=== PATIENT | male | born 1955 | race Caucasian/White ===

== ENCOUNTER 2016-11-22 12:54 | Inpatient (IN) | payer OTHER ==
[~2016-11-22] VITALS: Ht 182.8 cm; Wt 122.5 kg
[~2016-11-22 12:54] MED LIST: AUGMENTIN 875 M1 TAB PO; DUONEB 3 MG/3 ML3 M1 NEB; HYDROCODONE BIT1 T11 PO; KEFLEX500 MG PO; NKHM; TRAMADOL HCL50 MG PO; VICODIN 500 MG-1 TAB PO; VICODIN ES 7501 TAB PO; Zestril,Prinivi40 MG PO
[2016-11-22 13:02] VITALS: BP 147/76
[2016-11-22 13:20] VITALS: BP 136/79
[2016-11-22 13:42] LABS: BASO % 0.3 % (0.0-1.0); EOS # 0.1 10*3/uL (0.0-0.4); EOS % 0.9 % (1.0-4.0); HEMATOCRIT 42.4 % (42.0-52.0); HEMOGLOBIN 14.5 g/dl (14.0-18.0); LYMPH # 2.4 10*3/uL (1.3-4.4); LYMPH % 27.6 % (27.0-41.0); MEAN CELL VOLUME 85.5 fl (80.0-94.0); MEAN CORPUSCULAR HGB 29.2 pg (27.0-31.0); MEAN CORPUSCULAR HGB CONC 34.2 g/dl (33.0-37.0); MONO # 0.8 10*3/uL (0.1-1.0); MONO % 8.6 % (3.0-9.0); NEUT # 5.4 10*3/uL (2.3-7.9); NEUT % 62.1 % (47.0-73.0); PLATELET COUNT AUTOMATED 269 10*3/uL (130-400); RED BLOOD COUNT 4.96 10*6/uL (4.50-5.90); RED CELL DISTRI WIDTH 12.5 % (0-14.5); WHITE BLOOD COUNT 8.7 10*3/uL (4.8-10.8)
[2016-11-22 13:59] LABS: ALBUMIN 3.7 gm/dl (3.1-4.5); ALKALINE PHOSPHATASE 69 U/L (45-117); BILIRUBIN, TOTAL 0.6 mg/dl (0.2-1.0); BUN 13 mg/dl (7-24); CARBON DIOXIDE 27 mmol/L (21-32); CHLORIDE 104 mmol/L (98-107); EST GLOM FILT AFRICAN AMERICAN > 60 ml/min; GLUCOSE 96 mg/dL (65-99); MAGNESIUM 1.8 mg/dL (1.5-2.1); POTASSIUM 3.7 mmol/L (3.5-5.1); SGOT/AST 24 IU/L (3-35); SGPT/ALT 53 U/L (12-78); SODIUM 140 mmol/L (136-145); TOTAL PROTEIN 7.6 gm/dL (6.4-8.2)
[2016-11-22 14:00] LABS: TROPONIN I < 0.015 ng/ml (<0.045)
[2016-11-22 14:10] VITALS: BP 111/59
[2016-11-22 14:26] VITALS: BP 106/61
[2016-11-22 16:00] VITALS: BP 128/78
[2016-11-22 20:00] VITALS: BP 137/75
[2016-11-23] VITALS: BP 118/79
[2016-11-23 06:22] LABS: BASO % 0.5 % (0.0-1.0); EOS # 0.2 10*3/uL (0.0-0.4); EOS % 2.7 % (1.0-4.0); HEMATOCRIT 42.3 % (42.0-52.0); HEMOGLOBIN 14.4 g/dl (14.0-18.0); LYMPH # 2.6 10*3/uL (1.3-4.4); LYMPH % 35.1 % (27.0-41.0); MEAN CELL VOLUME 86.9 fl (80.0-94.0); MEAN CORPUSCULAR HGB 29.6 pg (27.0-31.0); MONO # 0.7 10*3/uL (0.1-1.0); MONO % 9.4 % (3.0-9.0); NEUT # 3.9 10*3/uL (2.3-7.9); NEUT % 51.9 % (47.0-73.0); PLATELET COUNT AUTOMATED 267 10*3/uL (130-400); RED BLOOD COUNT 4.87 10*6/uL (4.50-5.90); RED CELL DISTRI WIDTH 12.6 % (0-14.5); WHITE BLOOD COUNT 7.4 10*3/uL (4.8-10.8)
[2016-11-23 06:35] LABS: HEMOGLOBIN A1c 5.6 % (4.8-5.6)
[2016-11-23 06:53] LABS: ALBUMIN 3.4 gm/dl (3.1-4.5); BILIRUBIN, TOTAL 0.6 mg/dl (0.2-1.0); BUN 13 mg/dl (7-24); CARBON DIOXIDE 30 mmol/L (21-32); CHLORIDE 104 mmol/L (98-107); CHOLESTEROL 114 mg/dL (<200); EST GLOM FILT AFRICAN AMERICAN > 60 ml/min; GLUCOSE 105 mg/dL (65-99); MAGNESIUM 2.1 mg/dL (1.5-2.1); PHOSPHOROUS 3.8 mg/dL (2.5-4.9); POTASSIUM 4.3 mmol/L (3.5-5.1); SGOT/AST 29 IU/L (3-35); SGPT/ALT 53 U/L (12-78); SODIUM 140 mmol/L (136-145); TOTAL PROTEIN 7.3 gm/dL (6.4-8.2); TRIGLYCERIDES 55 mg/dl (<150); VLDL CHOLESTEROL 11 mg/dL (6-40)
[2016-11-23 06:55] LABS: ALKALINE PHOSPHATASE 67 U/L (45-117); HDL CHOLESTEROL 52 mg/dl (40-60); LDL CHOLESTEROL 51 mg/dL (9-159)
[2016-11-23 07:50] LABS: VITAMIN D, 25-HYDROXY 12.1 ng/mL (30-100)
[2016-11-23 07:51] LABS: FOLIC ACID 12.17 ng/mL (>5.38)
[2016-11-23 08:00] VITALS: BP 132/83
[2016-11-23] MEDS ORDERED: LASIX20 MG PO (11:07)
[2016-11-23] MEDS ORDERED: KLOR-CON M1010 ME1 PO (11:07)
[2016-11-23] MEDS ORDERED: VITAMIN D-32000 UNI1 PO (11:09)
[2016-11-23 12:00] VITALS: BP 145/96
== END 2016-11-23 13:22 | disposition home or self-care (01) | DRG 292 ==
LOC: ED 12:54 → EDHOLD 14:45 → 5E 14:45
PROVIDERS: Hospitalist; Nurse Practitioner Family
DX: I50.31 Acute diastolic (congestive) heart failure (principal); E44.0 Moderate protein-calorie malnutrition; E66.01 Morbid (severe) obesity due to excess calories; L03.116 Cellulitis of left lower limb; I87.2 Venous insufficiency (chronic) (peripheral); I87.8 Other specified disorders of veins; B19.20 Unspecified viral hepatitis C without hepatic coma; F19.10 Other psychoactive substance abuse, uncomplicated; J45.909 Unspecified asthma, uncomplicated; F12.10 Cannabis abuse, uncomplicated; Z96.652 Presence of left artificial knee joint; Z87.891 Personal history of nicotine dependence; Z82.49 Family history of ischemic heart disease and other diseases of the circulatory system; Z80.9 Family history of malignant neoplasm, unspecified; Z79.899 Other long term (current) drug therapy; Z68.36 Body mass index [BMI] 36.0-36.9, adult

== ENCOUNTER → 2017-01-19 | Outpatient (CLI) | payer OTHER ==
[~2017-01-19] MED LIST changes: +KLOR-CON M1010 ME1 PO; +LASIX20 MG PO; +VITAMIN D-32000 UNI1 PO
[2017-01-19 10:48] LABS: BASO % 0.3 % (0.0-1.0); EOS # 0.2 10*3/uL (0.0-0.4); HEMATOCRIT 46.4 % (42.0-52.0); HEMOGLOBIN 15.8 g/dl (14.0-18.0); LYMPH # 2.8 10*3/uL (1.3-4.4); LYMPH % 27.4 % (27.0-41.0); MEAN CELL VOLUME 87.9 fl (80.0-94.0); MEAN CORPUSCULAR HGB 29.9 pg (27.0-31.0); MEAN CORPUSCULAR HGB CONC 34.1 g/dl (33.0-37.0); MEAN PLATELET VOLUME 10.2 fl (9.6-12.3); MONO # 0.7 10*3/uL (0.1-1.0); MONO % 6.9 % (3.0-9.0); NEUT # 6.4 10*3/uL (2.3-7.9); PLATELET COUNT AUTOMATED 324 10*3/uL (130-400); RED BLOOD COUNT 5.28 10*6/uL (4.50-5.90); RED CELL DISTRI WIDTH 12.6 % (0-14.5); WHITE BLOOD COUNT 10.2 10*3/uL (4.8-10.8)
[2017-01-19 11:15] LABS: ALKALINE PHOSPHATASE 86 U/L (45-117); BILIRUBIN, TOTAL 0.6 mg/dl (0.2-1.0); BUN 14 mg/dl (7-24); CARBON DIOXIDE 30 mmol/L (21-32); CHLORIDE 102 mmol/L (98-107); CHOLESTEROL 102 mg/dL (<200); EST GLOM FILT AFRICAN AMERICAN > 60 ml/min; GLUCOSE 114 mg/dL (65-99); HDL CHOLESTEROL 52 mg/dl (40-60); LDL CHOLESTEROL 41 mg/dL (9-159); POTASSIUM 4.4 mmol/L (3.5-5.1); SGOT/AST 33 IU/L (3-35); SGPT/ALT 66 U/L (12-78); SODIUM 140 mmol/L (136-145); TOTAL PROTEIN 8.3 gm/dL (6.4-8.2); TRIGLYCERIDES 46 mg/dl (<150); VLDL CHOLESTEROL 9 mg/dL (6-40)
[2017-01-19 11:21] LABS: THYROID STIM HORMONE (HS) 0.693 uIU/ml (0.358-4.75)
== END | disposition home or self-care (01) ==
LOC: LAB 10:17
PROVIDERS: Internal Medicine
DX: Z12.5 Encounter for screening for malignant neoplasm of prostate (principal); I11.0 Hypertensive heart disease with heart failure; I50.32 Chronic diastolic (congestive) heart failure; E55.9 Vitamin D deficiency, unspecified; E66.09 Other obesity due to excess calories; R35.1 Nocturia

== ENCOUNTER → 2017-03-05 | Outpatient (CLI) | payer OTHER ==
[2017-03-05 11:10] LABS: BUN 16 mg/dl (7-24); CHLORIDE 103 mmol/L (98-107); POTASSIUM 4.1 mmol/L (3.5-5.1); SODIUM 135 mmol/L (136-145)
== END | disposition home or self-care (01) ==
LOC: LAB 10:13
PROVIDERS: Internal Medicine
DX: I50.32 Chronic diastolic (congestive) heart failure (principal)

== ENCOUNTER 2018-01-24 08:17 | Emergency (ER) | payer OTHER ==
[~2018-01-24] VITALS: Ht 182.8 cm; Wt 124.7 kg
[2018-01-24 09:01] LABS: BASO % 0.4 % (0.0-1.0); EOS # 0.2 10*3/uL (0.0-0.4); EOS % 2.1 % (1.0-4.0); HEMATOCRIT 40.9 % (42.0-52.0); HEMOGLOBIN 13.6 g/dl (14.0-18.0); LYMPH # 1.6 10*3/uL (1.3-4.4); LYMPH % 18.6 % (27.0-41.0); MEAN CELL VOLUME 87.2 fl (80.0-94.0); MEAN CORPUSCULAR HGB CONC 33.3 g/dl (33.0-37.0); MEAN PLATELET VOLUME 9.3 fl (9.6-12.3); MONO # 0.5 10*3/uL (0.1-1.0); NEUT # 6.1 10*3/uL (2.3-7.9); NEUT % 72.5 % (47.0-73.0); PLATELET COUNT AUTOMATED 249 10*3/uL (130-400); RED BLOOD COUNT 4.69 10*6/uL (4.50-5.90); WHITE BLOOD COUNT 8.5 10*3/uL (4.8-10.8)
[2018-01-24 09:17] LABS: ALBUMIN 3.4 gm/dl (3.1-4.5); ALKALINE PHOSPHATASE 72 U/L (45-117); BUN 12 mg/dl (7-24); CHLORIDE 105 mmol/L (98-107); CREATININE 0.81 mg/dL (0.70-1.30); POTASSIUM 4.3 mmol/L (3.5-5.1); SGOT/AST 22 IU/L (3-35); SGPT/ALT 44 U/L (12-78); SODIUM 140 mmol/L (136-145); TOTAL PROTEIN 7.6 gm/dL (6.4-8.2)
[2018-01-24] MEDS ORDERED: LASIX20 MG PO (10:12)
== END 2018-01-24 10:28 | disposition home or self-care (01) ==
LOC: ED 08:17
PROVIDERS: Emergency Medicine
DX: R60.0 Localized edema (principal); F19.10 Other psychoactive substance abuse, uncomplicated; J45.909 Unspecified asthma, uncomplicated; I50.9 Heart failure, unspecified; E66.01 Morbid (severe) obesity due to excess calories; Z87.891 Personal history of nicotine dependence; Z96.652 Presence of left artificial knee joint; Z79.899 Other long term (current) drug therapy

== ENCOUNTER 2019-11-15 21:16 | Inpatient (IN) | payer OTHER ==
[~2019-11-15] VITALS: Ht 182.8 cm; Wt 132.5 kg
[2019-11-15 21:23] VITALS: BP 103/49
--- NOTE | 2019-11-15 21:44 | NUR ---
EKG COMPLETED AND GIVEN TO DR. LINDSAY.
[2019-11-15 22:07] LABS: BASO % 0.2 % (0.0-1.0); EOS # 0.1 10*3/uL (0.0-0.4); EOS % 1.3 % (1.0-4.0); HEMATOCRIT 42.6 % (42.0-52.0); LYMPH # 1.8 10*3/uL (1.3-4.4); LYMPH % 17.3 % (27.0-41.0); MEAN CELL VOLUME 85.2 fl (80.0-94.0); MEAN CORPUSCULAR HGB 29.8 pg (27.0-31.0); MEAN PLATELET VOLUME 9.6 fl (9.6-12.3); MONO # 0.9 10*3/uL (0.1-1.0); MONO % 8.3 % (3.0-9.0); NEUT # 7.4 10*3/uL (2.3-7.9); NEUT % 72.5 % (47.0-73.0); PLATELET COUNT AUTOMATED 333 10*3/uL (130-400); RED CELL DISTRI WIDTH 12.1 % (0-14.5); WHITE BLOOD COUNT 10.2 10*3/uL (4.8-10.8)
[2019-11-15 22:24] LABS: ALKALINE PHOSPHATASE 53 U/L (45-117); BUN 14 mg/dl (7-24); CHLORIDE 104 mmol/L (98-107); CREATININE 0.71 mg/dL (0.70-1.30); POTASSIUM 3.1 mmol/L (3.5-5.1); SGOT/AST 49 IU/L (3-35); SGPT/ALT 58 U/L (12-78); SODIUM 136 mmol/L (136-145); TOTAL PROTEIN 7.3 gm/dL (6.4-8.2); TROPONIN I < 0.015 ng/ml (<0.045)
--- NOTE | 2019-11-15 22:25 | NUR ---
PT GIVEN URINAL FOR SAMPLE.
[2019-11-15 23:48] LABS: BILIRUBIN NEGATIVE (NEGATIVE); BLOOD NEGATIVE (NEGATIVE); CLARITY CLEAR (CLEAR); COLOR YELLOW (YELLOW); GLUCOSE NEGATIVE (NEGATIVE); KETONE NEGATIVE (NEGATIVE)
[2019-11-15 23:49] LABS: BACTERIA TRACE; EPITHELIAL CELLS 0-2; LEUKO ESTERASE TRACE (NEGATIVE); MUCOUS 1+; NITRITE NEGATIVE (NEGATIVE); RBC 0-2 rbc/hpf (0-2); WBC 0-2 wbc/hpf (0-5)
[2019-11-16] VITALS: BP 126/78
[2019-11-16 01:23] VITALS: BP 114/59
--- NOTE | 2019-11-16 01:24 | NUR ---
PT SLEEPING QUIETLY ON STRETCHER IN NAD. RESP EVEN AND UNLABORED. WILL CONTINUE TO MONITOR.
--- NOTE | 2019-11-16 01:45 | NUR ---
SBAR FAXED TO [facility]
[2019-11-16 02:00] VITALS: BP 133/73
--- NOTE | 2019-11-16 02:19 | NUR ---
PT TRANSPORTED TO IN STABLE CONDITION. REPORT TO DAGMAR MICHELLE.
--- NOTE | 2019-11-16 02:30 | NUR ---
PATIENT DENIED TAKING HOME MEDICATIONS
--- NOTE | 2019-11-16 03:30 | NUR ---
BRADY TAMEZ III [id number] Please refer to the physician's history and physical for past medical history, comorbid conditions, and allergies. Diagnosis: PHYSICAL DECONDITIONING,WEAKNESS Ever Score: , WOUND DESCRIPTIONS: Wound Number: 1 Location of the wound: left axilla Type of wound: fungal Thickness: Partial Size: 13.0cm x 15.0cm x <0.1cm Tunneling: none Undermining: none Sinus Tract: none Presence of Exudate: none Amount: None Color: Red Odor: Musty Periwound Skin Appearance: Normal Wound edges: approximated Pain (associated with wound): none at time of assessment How does patient state this happened? pt stated he was unaware that he even had anything until they pointed it out downstairs Wound Number: 2 Location of the wound: right axilla Type of wound: fungal Thickness: Partial Size: 3.3cm x 10.5cm x <0.1cm Tunneling: none Undermining: none Sinus Tract: none Presence of Exudate: none Amount: None Color: Red Odor: Musty Periwound Skin Appearance: Normal Wound edges: approximated Pain (associated with wound): none at time of assessment How does patient state this happened? pt stated he was unaware that he even had anything until they pointed it out downstairs Wound Number: 3 Location of the wound: left groin Type of wound: fungal Thickness: Partial Size: 19.5cm x 5.0cm x <0.1cm Tunneling: none Undermining: none Sinus Tract: none Presence of Exudate: none Amount: None Color: Red Odor: Musty Periwound Skin Appearance: Normal Wound edges: approximated Pain (associated with wound): none at time of assessment How does patient state this happened? pt stated he was unaware that he even had anything until they pointed it out downstairs Wound Number: 4 Location of the wound: right groin Type of wound: fungal Thickness: Partial Size: 30.0cm x 4.0cm x <0.1cm Tunneling: none Undermining: none Sinus Tract: none Presence of Exudate: none Amount: None Color: Red Odor: Musty Periwound Skin Appearance: Normal Wound edges: approximated Pain (associated with wound): none at time of assessment How does patient state this happened? pt stated he was unaware that he even had anything until they pointed it out downstairs Wound Number: 5 Location of the wound: left 4th toe Type of wound: abrasion Thickness: Partial Size: 0.3cm x 0.4cm x <0.1cm Tunneling: none Undermining: none Sinus Tract: none Presence of Exudate: none Amount: None Color: Red, brown Odor: none Periwound Skin Appearance: Normal Wound edges: approximated Pain (associated with wound): none at time of assessment How does patient state this happened? pt stated he bumped the area Bilateral heels are red and blanchable. No open areas noted at time of assessment. No drainage at time of assessment. Patient buttocks is pink and blanchable at time of assessment. No open areas noted at time of assessment. Surface the patient is resting on: Isoflex SKIN PREVENTION RECOMMENDATION: 1. Pressure redistribution support surface as appropriate 2. Elevate heels 3. Remove boots/TEDS every shift and reapply 4. Head of bed 30 degrees as tolerated 5. Assess nutrition and hydration 6. Manage moisture 7. Avoid the use of containment devices while in bed 8. Use absorptive products on surfaces limit layers of linens on bed 9. Turn and reposition every 1-2 hours in bed and every 1 hour in chair as tolerated 10. Weight shifts every 15 minutes while up in chair 11. Offloading with pillows or device to keep heels elevated off bed 12. Monitor skin at least every shift 13. Inspect under medical devices twice a day WOUND TREATMENT RECOMMENDATIONS: Clease left axilla, right axilla, right groin and left groin with soap and water pat area dry then apply nystatin powder every 8 hours Partial thickness guidelines: Cleanse left 4th toe with nss and apply sureprep around the wound hydrogel to wound bed and cover with bandaid every 2 days and prn for soiling Heel raiser pro boots to bilateral feet while in bed Cleanse buttocks with soap and water pat area dry then apply hydraguard every shift and prn for prevention.
--- NOTE | 2019-11-16 03:54 | NUR ---
Time: 199 A 64 year old MALE admitted to [facility] under services of KEIKO VENCES MD. Pt. arrived via stretcher from ER. Chief complaint: CAME IN WITH C/O WEAKNESS. STATED HE WAS UNABLE TO GET OFF COUCH X 2 WEEKS. ABIOLA GRAMAJO
--- NOTE | 2019-11-16 07:52 | NUR ---
PHYSICAL THERAPY Screen and PT eval received will follow thank you. Nohemy Royal PT
[2019-11-16 08:00] VITALS: BP 122/81
--- NOTE | 2019-11-16 08:04 | NUR ---
Occupational therapy order and nursing screen received. Will follow up with patient for completion of an OT evaluation. Thank you. Char Arrington, OTR/L
--- NOTE | 2019-11-16 08:28 | NUR ---
PT SITTING UP ON SIDE OF BED, EATING BREAKFAST. PT DENIES DISTRESS. RESPIRATIONS UNLABORED. PT GIVEN CALL LIGHT AND REMINDED TO CALL FOR HELP IF HE DOES NEED ANYTHING WHILE EATING. WILL CONTINUE TO MONITOR PT. CALL LIGHT IN REACH.
--- NOTE | 2019-11-16 09:30 | NUR ---
Business Systems Advisor in to talk to patient. Patient states lives at home alone with his family checking in on her. There are 0 steps in the home. Physician: no family physician [facility]acy: [facility] Home health services: none Patient's level of ADLs: MINIMAL ASSIST Patient has working utilities: yes DME: none Follow-up physician's appointment after d/c: he prefers to make his own follow up appt after discharge Does patient want to access PORTAL?: no Discharge plan discussed with patient. He lives at home alone with his family checking in on him. He states he is independent in his ADLs and ambulation. Discussed short term rehab and he is agreeable. When provided with a list of facilities he wanted to stay close to home and chose [facility]. clothing worker notified. JEAN KOROMA
--- NOTE | 2019-11-16 09:51 | NUR ---
SENIOR EXECUTIVE ASSISTANT CONTACTED APS WITH CONCERNS FOR HOW THE PATIENT WAS FOUND PER ER DOCUMENTATION.
--- NOTE | 2019-11-16 11:57 | NUR ---
Occupational Therapy evaluation completed on five with full evaluation to follow. Recommend occupational therapy per plan of care and SNF upon discharge. Thank you for this referral. Char Arrington OTR/L
--- NOTE | 2019-11-16 11:57 | NUR ---
PHYSICAL THERAPY Physical Therapy evaluation completed on [facility] with full evaluation to follow. Low complexity PT evaluation per chart review and evaluation, [id number]. Recommend physical therapy per plan of care and SNF upon discharge. Thank you for this referral. Monie Campbell,PT,DPT
[2019-11-16 12:00] VITALS: BP 143/77
--- NOTE | 2019-11-16 12:11 | NUR ---
DOCUMENTATION WRITER FAXED NEW REFERRAL TO [facility]. PRECERT WILL BE REQUIRED.
--- NOTE | 2019-11-16 16:39 | NUR ---
PT GIVEN TYLENOL FOR C/O RIGHT KNEE PAIN. WILL MONITOR FOR EFFECTIVENESS. CALL LIGHT IN REACH.
--- NOTE | 2019-11-16 17:39 | NUR ---
TYLENOL EFFECTIVE PER PT.
[2019-11-16 20:00] VITALS: BP 128/70
[2019-11-17] VITALS: BP 119/73
--- NOTE | 2019-11-17 04:01 | NUR ---
TYLENOL GIVEN PER PRN ORDER FOR C/O KMEE PAIN. SEE EMAR. REINFORCED USE OF CALL LIGHT.
--- NOTE | 2019-11-17 04:16 | NUR ---
Upon discharge recommend patient to follow up for wound care in outpatient setting continue current wound care orders at discharging facility.
--- NOTE | 2019-11-17 07:30 | NUR ---
TOOK OVER CARE OF PT AT THIS TIME. PT RESTING IN BED. RESPIRATIONS EASY AND UNLABORED ON ROOM AIR. NO S/S OF DISTRESS NOTED AT THIS TIME. SAFETY MEASURES IN PLACE. CALL LIGHT IN REACH.
[2019-11-17 08:00] VITALS: BP 135/84
--- NOTE | 2019-11-17 10:28 | NUR ---
PHYSICAL THERAPY Physical therapy treatment session complete. Total treatment time: 18 minutes. Patient sitting EOB at beginning of PT session and agreeable to skilled PT services. Patient A&O x3. OT present throughout treatment session. Patient returned to supine position in bed and then was assisted to sitting on opposite side of bed, CGA x1. Patient requiring assistance for trunk, due to trunk weakness 3+/5 noted. Patient sitting EOB, and transferred to standing at FWW. Patient requiring ModA for sit to stand initially, and then Raf after 2 attempts, totaling 5 sit to stands. Patient gait trained forward/back 6'x1. Raf with walker, verbal/tactile cueing for safety. Patient returned to seated position on EOB. Patient gait trained another 6'x1 with FWW and Raf, and returned to seated position in recliner. Patient lacking safety awareness, impulsive, and unsteady throughout gait this session. SpO2 >96% throughuot entire session. Patient remained in recliner at end of PT session. Recommend continued SNF needs at discharge to return to PLOF. Thank you. Monie Campbell,PT,DPT.
--- NOTE | 2019-11-17 10:30 | NUR ---
OT NOTE Patient was seen this date for occupational therapy treatment to maximize safety and independence with ADLs and transfers. Nursing gave approval to see patient and patient was agreeable to OT treatment. PT was present for observation. Upon arrival, patient was seated EOB stating he spilled his urinal on the ground, OTR and PT assisted with cleaning up. Patient transferred to supine and to the opposite side of the bed with CGAx1. Patient changed front gowns with Min A seated EOB. Patient unable to complete tailor sit for sock donning and educated on scooting one hip back and lifting LE to EOB. Patient required Mod A to don socks over toes but had good carryover of edu and completed the task. Patient completed multiple sit/stands from EOB with Min to Mod A with good carryover of safe hand placement for transfers. Patient performed mobility within the room with Min Ax2, very impulsive and unsteady in stance. Patient completed a grooming task in stance with Min Ax2 for balance. Patient seated in the recliner needing to utilize the urinal with set-up assist however required Mod cues for toileting hygiene. Patient maintained SpO2 on >96% throughout evaluation. Patient seated in recliner, all needs within reach, and alarm on for safety. Nursing notified of patient location, functional status, and cleanliness of room at end of eval. Patient to continue with POC as able, recommend SNF at discharge. Char Arrington, OTR/L
--- NOTE | 2019-11-17 11:21 | NUR ---
FILES SUPERVISOR FAXED UPDATES TO [facility]. PATIENT WILL NEED A NEGATIVE COVID BEFORE ACCEPTANCE/DENIAL TO [facility].
--- NOTE | 2019-11-17 12:17 | NUR ---
pt sitting up in chair beside bed at this time. pt alert oriented and pleasant mood. no s/s of distress. respirations easy and unlabored. pt denies pain at this time. will continue to monitor. safety measures in place. call light in reach.
--- NOTE | 2019-11-17 12:51 | NUR ---
Nutritional Support Services Note: Appetite is good for meals. He is eating 100% of all meals served. Regular diet as ordered. No other nutrition intervention needed at this time. Will follow if needed. Lisa Langford Rdn Ld
--- NOTE | 2019-11-17 13:16 | NUR ---
PRECERT HAS BEEN STARTED. PATIENT WILL NEED NEGATIVE COVID BEFORE ADMISSION TO [facility].
--- NOTE | 2019-11-17 13:53 | NUR ---
PT ASSISTED TO BATHROOM AND BACK TO BED BY THIS NURSE AND A PATIENT ATTEDANT. PT USED WALKER TO WALK. PT DENIES SHORTNESS OF BREATH. RESPIRATIONS ARE UNLABORED. NYSTATIN POWDER APPLIED TO EXCORIATED AREAS PER ORDERS. PT LYING IN BED. HOB ELEVATED. SAFETY MEASURES IN PLACE. CALL LIGHT IN REACH.
--- NOTE | 2019-11-17 15:10 | NUR ---
PRECERT HAS BEEN STARTED. INFORMATION TECHNOLOGY ANALYST COMPLETED HENS.
[2019-11-17 16:00] VITALS: BP 144/83
--- NOTE | 2019-11-17 17:16 | NUR ---
PT SITTING UP IN BED. NO COMPLAINTS VOICED. RESPIRATIONS UNLABORED. CALL LIGHT IN REACH.
--- NOTE | 2019-11-17 18:37 | NUR ---
COVID 19 RAPID TEST IS NEGATIVE.
[2019-11-17 20:00] VITALS: BP 152/77
--- NOTE | 2019-11-17 20:20 | NUR ---
24 HR chart check completed.
[2019-11-18] VITALS: BP 138/83
[2019-11-18 06:44] LABS: BUN 8 mg/dl (7-24); CHLORIDE 108 mmol/L (98-107); CREATININE 0.62 mg/dL (0.70-1.30); POTASSIUM 3.6 mmol/L (3.5-5.1); SODIUM 138 mmol/L (136-145)
--- NOTE | 2019-11-18 07:30 | NUR ---
PT RESTING IN BED. VOICES NO CONCERNS AT THIS TIME. RESPS EASY AND NON LABORED. NO S/S OF DISTRESS NOTED. VSS. WHITE BOARD UPDATED. PLAN OF CARE DISCUSSED.CALL LIGHT WITHIN REACH. BED ALARM ON
[2019-11-18 08:00] VITALS: BP 134/86
--- NOTE | 2019-11-18 10:56 | NUR ---
Shift chart check completed.
--- NOTE | 2019-11-18 14:17 | NUR ---
PT SITTING UP WATCHING TV. VOICES NO CONCERNS. RESPS EASY AND NON LABORED. NO S/S OF DISTRESS. BED ALARM ON. CALL LIGHT WITHIN REACH.
[2019-11-18 16:00] VITALS: BP 138/80; BP 160/85
--- NOTE | 2019-11-18 17:54 | NUR ---
PT SITTING UP EATING DINNER. VOICES NO CONCERNS AT THIS TIME. RESPS EASY AND NON LABORED. NO S/S OF DISTRESS NOTED. CALL LIGHT WITHIN REACH. BODY ALARM ON.
[2019-11-18 20:00] VITALS: BP 137/77
--- NOTE | 2019-11-18 20:00 | NUR ---
SITTING UP IN BED, NO DISTRESS NOTED. RESPIRATIONS EASY. LUNGS DIMINISHED, CLEAR. PULSE OX 98% RA. +1 BLE EDEMA, ENCOURAGED TO ELEVATE LEGS. CALL LIGHT WITHIN REACH. NO VOICED COMPLAINTS
--- NOTE | 2019-11-18 21:40 | NUR ---
REQUESTED AND RECEIVED AMBIEN PER PRN ORDER TO ASSIST WITH SLEEP. WILL MONITOR
--- NOTE | 2019-11-18 22:30 | NUR ---
AMBIEN NOT YET EFFECTIVE. REMAINS AWAKE
[2019-11-19] VITALS: BP 140/82; BP 143/91
--- NOTE | 2019-11-19 | NUR ---
OPALIEN EFFECTIVE. SLEEPING. RESPIRATIONS EASY. VSS. CALL LIGHT WITHIN REACH.
--- NOTE | 2019-11-19 01:55 | NUR ---
24 HR chart check completed.
--- NOTE | 2019-11-19 06:00 | NUR ---
RESTED THROUGHOUT NIGHT WITH NO DISTRESS NOTED. RESPIRATIONS EASY. CALL LIGHT WITHIN REACH. NO VOICED COMPLAINTS THIS SHIFT
[2019-11-19 08:00] VITALS: BP 142/76
--- NOTE | 2019-11-19 08:25 | NUR ---
PT RESTING IN BED/ NO DISTRESS NOTED. WILL MONITOR
[2019-11-19 12:00] VITALS: BP 138/75
--- NOTE | 2019-11-19 13:30 | NUR ---
PT REQUESTED AND GIVEN TYLENOL FOR C/O HEADACHE WILL MONITOR
--- NOTE | 2019-11-19 14:20 | NUR ---
TYLENOL HELPED PER PT WILL CONT TO MONITOR
[2019-11-19 16:00] VITALS: BP 137/90
[2019-11-19 20:00] VITALS: BP 122/58; BP 154/90
--- NOTE | 2019-11-19 20:00 | NUR ---
resting in bed watching tv with no distress noted. respirations easy. lungs diminished, clear. pulse ox 96% ra. +1 ble edema. call light within reach. no voiced complaints
--- NOTE | 2019-11-19 20:00 | NUR ---
24 HR chart check completed.
--- NOTE | 2019-11-19 20:59 | NUR ---
requested and received tylenol and ambien per prn order for complaints of generalized aches and pains and to assist with sleep. call light within reach. will monitor for effectiveness
--- NOTE | 2019-11-19 21:45 | NUR ---
meds appear effective. sleeping. respirations easy. call light within reach
[2019-11-20] VITALS: BP 140/88; BP 144/93
--- NOTE | 2019-11-20 | NUR ---
sleeping with no distress noted. respirations easy. vss. call light within reach.
--- NOTE | 2019-11-20 06:00 | NUR ---
SLEPT THROUGHOUT NIGHT WITH NO DISTRESS NOTED. RESPIRATIONS EASY. CALL LIGHT WITHIN REACH. NO VOICED COMPLAINTS THIS SHIFT
--- NOTE | 2019-11-20 07:43 | NUR ---
pt resting in bed. no distress noted. will monitor
[2019-11-20 08:00] VITALS: BP 132/86
--- NOTE | 2019-11-20 08:12 | NUR ---
PRECERT WAS STARTED ON 11/17/19. PILLOWCASE CLEANER FAXED UPDATES TO [facility]. WILL NEED UPDATED PT/OT NOTES.
[2019-11-20] MEDS ORDERED: Ipratropium Brom3 ML NEB (08:46)
[2019-11-20] MEDS ORDERED: NYSTOP60 GM T (08:46)
[2019-11-20] MEDS ORDERED: SERTRALINE HYDR25 MG PO (08:46)
--- NOTE | 2019-11-20 09:30 | NUR ---
PHYSICAL THERAPY Patient seen this am 1;1 for therapy visit and was resting supine in bed upon therapist arrival. Patient identified by name / and reports global mucsle soreness in all joints, 09/28. OT assistant director of admissions was also present for observation only this session as patient transfers supine to sit EOB with Min A. Patient needed a minute or so to fully collect himself prior to performing sit to stand transfer, CGA, use of wh walker standing support. Patient ambulated to bathroom, 15'x 1, wh walker, CGA, then additional 35'x 1, demonstrating very slow, cautious gait pattern. Patient also "slouched" posture at times, requiring v/c to stand tall upon return to EOB sit with increased fatigue. Patient remained EOB with call light, tray table and telephone. Will continue per POC as tolerated, total treatment time 16 minutes. Jarvis Garcia, ACCOUNTANT MANAGER
--- NOTE | 2019-11-20 09:35 | NUR ---
OT NOTE Pt was seen this A.M. 1:1 for 20 minute OT session. Upon arrival pt was supine in bed. Pt identified by name and and had complaints of being "sore" all over. Pt transferred supine to sit EOB with SBA. While sitting EOB pt donned pants with CGA for safety and was educated on compensatory technique for increased I and improved technique, pt had fair carry over. Sit to stand completed from bed level with CGA and use of w/w for UE support followed by functional mobility to the bathroom with CGA and use of w/w. Throughout pt required multiple verbal prompts for slowing down due to being impulsive and increasing risk of falls. Pt had multiple bouts of unsteady stance that required Kalee to correct. While in the bathroom pt presented with poor safety awareness, poor walker safety, poor safety with turning, and poor safety while stepping back. After education and verbal prompts were given pt continued to present with poor carry over. While transferring on to the standard commode pt required Kalee due to poor safety and being impulsive and then off the commode with Kalee with LOB backwards upon inital rise that required modA to correct. Pt then stood sink side while washing his hands with CGA, pt again presented with poor safety awareness and being impulsive resulting in two LOB that required Kalee to correct. Functional mobility was then completed back to the EOB for a seated rest break. Challenged pt's dynamic standing balance while weight shifting, crossing midline, and reaching over all planes and pt was able to maintain F- standing balance throughout. Pt was left sitting upright on the EOB with call light in hand, tray table in place, and phone in reach. Continue with rec D/C plan to SNF. MONICA Briscoe
--- NOTE | 2019-11-20 11:18 | NUR ---
ELECTRICAL MAINTENANCE MECHANIC FAXED PT/OT UPDATES TO [facility].
[2019-11-20 12:00] VITALS: BP 126/94
--- NOTE | 2019-11-20 12:28 | NUR ---
PT REQUESTED AND GIEVN TYLENOL FOR GEN PAIN PT RATES PAIN 6/10 WILL MONITOR
--- NOTE | 2019-11-20 13:20 | NUR ---
TYLENOL HELPED PER PT WILL MONITOR
--- NOTE | 2019-11-20 15:30 | NUR ---
PATIENT IS DISCHARGED CHECKING WITH [facility] IF THEY CAN TRANSPORT THE PATIENT AT 5PM. PATIENT WILL NOT QUALIFY FOR AN AMBULANCE. SCHOOL PSYCHOLOGIST NOTIFIED WC-RAZ.
--- NOTE | 2019-11-20 15:35 | NUR ---
BRAND DEVELOPMENT MANAGER NOTIFIED OF PATIENT DISCHARGE. BRAND DEVELOPMENT MANAGER SPOKE WITH [facility] THEY ARE ABLE TO TRANSPORT THE PATIENT THE PATIENT AT 5PM TODAY. BRAND DEVELOPMENT MANAGER NOTIFIED RN JENNIFFER. BRAND DEVELOPMENT MANAGER CALLED AND LEFT MESSAGE FOR PATIENTS SON.
--- NOTE | 2019-11-20 15:59 | NUR ---
PT REFUSED DC WOUND PHOTOS
--- NOTE | 2019-11-20 17:03 | NUR ---
REPORT CALLED TO [facility]
--- NOTE | 2019-11-20 17:15 | NUR ---
Discharge instructions reviewed with patient/family. Patient receptive and verbalizes understanding. Follow-up care arranged. Written instructions given to patient/family. RUTHIE ANDINO
--- NOTE | 2019-11-21 08:18 | NUR ---
OCCUPATIONAL THERAPY CO-SIGN I approve of the Occupational Therapy notes written above. JANELL CERVANTES, OTR/L
--- NOTE | 2019-11-21 08:19 | NUR ---
PHYSICAL THERAPY CO-SIGN I approve of the Physical Therapy notes written above. Nohemy Royal PT
== END 2019-11-20 17:15 | disposition other institution (70) | DRG 641 ==
LOC: ED 21:16 → 5E 11-16 01:39
PROVIDERS: Emergency Medicine; ADMIT Internal Medicine
DX: E87.6 Hypokalemia (principal); E44.0 Moderate protein-calorie malnutrition; F32.1 Major depressive disorder, single episode, moderate; R26.89 Other abnormalities of gait and mobility; R62.7 Adult failure to thrive; J45.20 Mild intermittent asthma, uncomplicated; Z96.652 Presence of left artificial knee joint; I50.9 Heart failure, unspecified; E66.01 Morbid (severe) obesity due to excess calories; F51.01 Primary insomnia; R53.1 Weakness; Z87.891 Personal history of nicotine dependence; Z83.3 Family history of diabetes mellitus; Z82.49 Family history of ischemic heart disease and other diseases of the circulatory system; Z80.7 Family history of other malignant neoplasms of lymphoid, hematopoietic and related tissues; Z68.39 Body mass index [BMI] 39.0-39.9, adult

== ENCOUNTER 2020-09-18 15:38 | Inpatient (IN) | payer OTHER ==
[~2020-09-18] VITALS: Ht 182.9 cm; Wt 108.1 kg
[2020-09-18 15:38] VITALS: BP 98/62
[~2020-09-18 15:38] MED LIST changes: +Ipratropium Brom3 ML NEB; +NYSTOP60 GM T; +SERTRALINE HYDR25 MG PO
[2020-09-18 17:15] VITALS: BP 87/36
[2020-09-18 17:52] VITALS: BP 113/72
[2020-09-18 17:53] LABS: HEMATOCRIT 50.8 % (42.0-52.0); MEAN CELL VOLUME 85.8 fl (80.0-94.0); MEAN CORPUSCULAR HGB 27.9 pg (27.0-31.0); MEAN CORPUSCULAR HGB CONC 32.5 g/dl (33.0-37.0); MEAN PLATELET VOLUME 10.3 fl (9.6-12.3); PLATELET COUNT AUTOMATED 398 10*3/uL (130-400); RED BLOOD COUNT 5.92 10*6/uL (4.50-5.90); RED CELL DISTRI WIDTH 13.2 % (0-14.5); WHITE BLOOD COUNT 27.5 10*3/uL (4.8-10.8)
[2020-09-18 18:00] LABS: BILIRUBIN 2+ (Negative); BLOOD 1+ (Negative); CLARITY Cloudy (Clear); COLOR Dark Yellow (Yellow); GLUCOSE Negative (Negative); KETONE Negative (Negative); LEUKO ESTERASE Trace (Negative); NITRITE Positive (Negative); SPECIFIC GRAVITY 1.025 (1.001-1.030)
[2020-09-18 18:01] LABS: ABG BASE EXCESS -3.1 mmol/L (-2.0-2.0); ARTERIAL BLOOD GAS PH 7.517 (7.35-7.45); ARTERIAL BLOOD GAS PO2 66.1 (80-90)
[2020-09-18 18:06] LABS: ACT PARTIAL THROMBO TIME 33.1 SECONDS (20.0-32.1); INTERNATIONAL NORM RATIO 1.5 (2.0-3.5)
[2020-09-18 18:08] LABS: BACTERIA 2+
[2020-09-18 18:11] LABS: ALBUMIN 2.1 gm/dl (3.1-4.5); ALKALINE PHOSPHATASE 83 U/L (45-117); BUN 45 mg/dl (7-24); CHLORIDE 108 mmol/L (98-107); CREATININE 1.22 mg/dL (0.70-1.30); POTASSIUM 4.2 mmol/L (3.5-5.1); SGOT/AST 79 IU/L (3-35); SGPT/ALT 48 U/L (12-78); SODIUM 139 mmol/L (136-145)
[2020-09-18 18:15] LABS: PLATELET SUFFICIENCY NORMAL (NORMAL); TOTAL CELLS COUNTED 100 #CELLS
[2020-09-18 18:17] LABS: TROPONIN I < 0.015 ng/ml (<0.045)
[2020-09-18 19:07] VITALS: BP 115/61
[2020-09-18 19:13] VITALS: BP 114/77
[2020-09-18 20:30] VITALS: BP 104/76
[2020-09-19] VITALS: BP 113/72
[2020-09-19 04:00] VITALS: BP 105/81
[2020-09-19 05:41] LABS: ALBUMIN 1.8 gm/dl (3.1-4.5); ALKALINE PHOSPHATASE 69 U/L (45-117); BUN 39 mg/dl (7-24); CHLORIDE 109 mmol/L (98-107); CREATININE 0.97 mg/dL (0.70-1.30); POTASSIUM 3.4 mmol/L (3.5-5.1); SGOT/AST 63 IU/L (3-35); SGPT/ALT 36 U/L (12-78); SODIUM 138 mmol/L (136-145); TOTAL PROTEIN 6.3 gm/dL (6.4-8.2)
[2020-09-19 06:13] LABS: HEMATOCRIT 43.1 % (42.0-52.0); MEAN CELL VOLUME 85.9 fl (80.0-94.0); MEAN CORPUSCULAR HGB 28.3 pg (27.0-31.0); MEAN CORPUSCULAR HGB CONC 32.9 g/dl (33.0-37.0); MEAN PLATELET VOLUME 10.2 fl (9.6-12.3); PLATELET COUNT AUTOMATED 374 10*3/uL (130-400); RED BLOOD COUNT 5.02 10*6/uL (4.50-5.90); RED CELL DISTRI WIDTH 13.3 % (0-14.5); WHITE BLOOD COUNT 21.8 10*3/uL (4.8-10.8)
[2020-09-19 07:48] LABS: BURR CELLS MODERATE; PLATELET SUFFICIENCY NORMAL (NORMAL); TOTAL CELLS COUNTED 100 #CELLS
[2020-09-19 08:00] VITALS: BP 106/68
[2020-09-19 12:00] VITALS: BP 110/68
[2020-09-19 16:00] VITALS: BP 111/62
[2020-09-19 20:00] VITALS: BP 117/70
[2020-09-20] VITALS: BP 106/67
[2020-09-20 04:00] VITALS: BP 106/44
[2020-09-20 05:51] LABS: HEMATOCRIT 45.1 % (42.0-52.0); MEAN CELL VOLUME 86.4 fl (80.0-94.0); MEAN CORPUSCULAR HGB 27.8 pg (27.0-31.0); MEAN CORPUSCULAR HGB CONC 32.2 g/dl (33.0-37.0); MEAN PLATELET VOLUME 9.5 fl (9.6-12.3); PLATELET COUNT AUTOMATED 380 10*3/uL (130-400); RED BLOOD COUNT 5.22 10*6/uL (4.50-5.90); RED CELL DISTRI WIDTH 13.6 % (0-14.5); WHITE BLOOD COUNT 18.7 10*3/uL (4.8-10.8)
[2020-09-20 06:11] LABS: ALBUMIN 1.8 gm/dl (3.1-4.5); ALKALINE PHOSPHATASE 64 U/L (45-117); BUN 33 mg/dl (7-24); CHLORIDE 114 mmol/L (98-107); CREATININE 0.99 mg/dL (0.70-1.30); POTASSIUM 4.1 mmol/L (3.5-5.1); SGOT/AST 56 IU/L (3-35); SGPT/ALT 30 U/L (12-78); SODIUM 144 mmol/L (136-145); TOTAL PROTEIN 6.4 gm/dL (6.4-8.2)
[2020-09-20 06:46] LABS: BURR CELLS FEW; PLATELET SUFFICIENCY NORMAL (NORMAL); TOTAL CELLS COUNTED 100 #CELLS
[2020-09-20 08:00] VITALS: BP 107/66
[2020-09-20 12:00] VITALS: BP 96/60
[2020-09-20 16:00] VITALS: BP 93/66
[2020-09-20 20:00] VITALS: BP 130/40
[2020-09-21] VITALS: BP 89/43
[2020-09-21 04:00] VITALS: BP 100/59; BP 104/59
[2020-09-21 06:28] LABS: HEMATOCRIT 40.9 % (42.0-52.0); MEAN CELL VOLUME 87.8 fl (80.0-94.0); MEAN CORPUSCULAR HGB 27.3 pg (27.0-31.0); MEAN CORPUSCULAR HGB CONC 31.1 g/dl (33.0-37.0); MEAN PLATELET VOLUME 9.4 fl (9.6-12.3); PLATELET COUNT AUTOMATED 296 10*3/uL (130-400); RED BLOOD COUNT 4.66 10*6/uL (4.50-5.90); WHITE BLOOD COUNT 19.4 10*3/uL (4.8-10.8)
[2020-09-21 06:33] LABS: CHLORIDE 121 mmol/L (98-107); POTASSIUM 3.7 mmol/L (3.5-5.1); SODIUM 149 mmol/L (136-145)
[2020-09-21 06:47] LABS: BUN 27 mg/dl (7-24); CREATININE 0.85 mg/dL (0.70-1.30)
[2020-09-21 08:00] VITALS: BP 119/67
[2020-09-21 08:01] LABS: PLATELET SUFFICIENCY NORMAL (NORMAL); POLYCHROMASIA SLIGHT; TOTAL CELLS COUNTED 100 #CELLS
[2020-09-21 08:02] LABS: BURR CELLS FEW
[2020-09-21 16:00] VITALS: BP 112/73
[2020-09-21 20:00] VITALS: BP 101/66
[2020-09-22] VITALS: BP 97/65
[2020-09-22 04:00] VITALS: BP 110/63
[2020-09-22 07:16] LABS: ARTERIAL BLOOD GAS PH 7.415 (7.35-7.45); ARTERIAL BLOOD GAS PO2 64.6 (80-90)
[2020-09-22 07:17] LABS: ABG BASE EXCESS -7.1 mmol/L (-2.0-2.0)
[2020-09-22 08:00] VITALS: BP 106/64
[2020-09-22 12:00] VITALS: BP 98/67
[2020-09-22 16:00] VITALS: BP 118/62
[2020-09-22 20:00] VITALS: BP 80/50
[2020-09-23] VITALS: BP 102/84
[2020-09-23 05:07] VITALS: BP 106/71
[2020-09-23 07:25] LABS: BUN 32 mg/dl (7-24); CREATININE 0.96 mg/dL (0.70-1.30); POTASSIUM 4.1 mmol/L (3.5-5.1); SODIUM 155 mmol/L (136-145)
[2020-09-23 07:31] LABS: CHLORIDE 128 mmol/L (98-107)
[2020-09-23 08:00] VITALS: BP 109/69
[2020-09-23 11:55] VITALS: BP 101/65
[2020-09-23 16:00] VITALS: BP 99/59
[2020-09-23 20:00] VITALS: BP 98/55
[2020-09-24] VITALS: BP 134/63
[2020-09-24 08:00] VITALS: BP 96/87
[2020-09-24 08:09] LABS: BUN 28 mg/dl (7-24); CREATININE 0.79 mg/dL (0.70-1.30); POTASSIUM 4.3 mmol/L (3.5-5.1); SODIUM 154 mmol/L (136-145)
[2020-09-24 08:19] LABS: CHLORIDE 128 mmol/L (98-107)
[2020-09-24 12:00] VITALS: BP 100/58
[2020-09-24 16:00] VITALS: BP 90/59
[2020-09-24 20:00] VITALS: BP 106/84
[2020-09-25 00:02] VITALS: BP 92/53
[2020-09-25 05:59] LABS: ALBUMIN 1.3 gm/dl (3.1-4.5); ALKALINE PHOSPHATASE 75 U/L (45-117); BUN 27 mg/dl (7-24); CHLORIDE 126 mmol/L (98-107); CREATININE 0.89 mg/dL (0.70-1.30); POTASSIUM 3.8 mmol/L (3.5-5.1); SGOT/AST 34 IU/L (3-35); SGPT/ALT 17 U/L (12-78); SODIUM 153 mmol/L (136-145); TOTAL PROTEIN 5.9 gm/dL (6.4-8.2)
[2020-09-25 08:00] VITALS: BP 102/49
[2020-09-25 08:05] VITALS: BP 118/53; BP 118/54
[2020-09-25 12:00] VITALS: BP 150/76
[2020-09-25 16:11] VITALS: BP 111/59
[2020-09-25 20:00] VITALS: BP 105/61
[2020-09-26] VITALS: BP 67/36
== END 2020-09-26 05:23 | DRG 871 ==
LOC: ED 15:38 → EDHOLD 19:11 → ICCU 19:11 → 4E 09-20 16:54
PROVIDERS: Internal Medicine; Internal Medicine Critical Care Medicine; Internal Medicine Nephrology; ADMIT Internal Medicine; ATTEND Internal Medicine
PROC: 06H033Z Insertion of Infusion Device into Inferior Vena Cava, Percutaneous Approach (ICD-10-PCS; principal; 2020-09-19)
PROC: B549ZZA Ultrasonography of Inferior Vena Cava, Guidance (ICD-10-PCS; 2020-09-19)
DX: A41.9 Sepsis, unspecified organism (principal); L89.103 Pressure ulcer of unspecified part of back, stage 3; E43 Unspecified severe protein-calorie malnutrition; R65.21 Severe sepsis with septic shock; J69.0 Pneumonitis due to inhalation of food and vomit; J96.01 Acute respiratory failure with hypoxia; E87.2 Acidosis; N39.0 Urinary tract infection, site not specified; E87.0 Hyperosmolality and hypernatremia; K80.12 Calculus of gallbladder with acute and chronic cholecystitis without obstruction; G91.2 (Idiopathic) normal pressure hydrocephalus; T14.8XXA Other injury of unspecified body region, initial encounter; L89.892 Pressure ulcer of other site, stage 2; L08.9 Local infection of the skin and subcutaneous tissue, unspecified; Z68.32 Body mass index [BMI] 32.0-32.9, adult; R31.9 Hematuria, unspecified; E87.8 Other disorders of electrolyte and fluid balance, not elsewhere classified; J45.20 Mild intermittent asthma, uncomplicated; Z66 Do not resuscitate; Z51.5 Encounter for palliative care; F32.9 Major depressive disorder, single episode, unspecified; K70.9 Alcoholic liver disease, unspecified; M06.9 Rheumatoid arthritis, unspecified; E66.01 Morbid (severe) obesity due to excess calories; E86.9 Volume depletion, unspecified; B96.4 Proteus (mirabilis) (morganii) as the cause of diseases classified elsewhere; B96.20 Unspecified Escherichia coli [E. coli] as the cause of diseases classified elsewhere; R13.12 Dysphagia, oropharyngeal phase; R53.81 Other malaise; Z96.652 Presence of left artificial knee joint; X58.XXXA Exposure to other specified factors, initial encounter; Z68.33 Body mass index [BMI] 33.0-33.9, adult; Y93.89 Activity, other specified; Y92.89 Other specified places as the place of occurrence of the external cause; Y99.8 Other external cause status; Z82.49 Family history of ischemic heart disease and other diseases of the circulatory system; Z79.899 Other long term (current) drug therapy; Z20.822 Contact with and (suspected) exposure to COVID-19